=== PATIENT | female | born 1990 | race African-American/Black ===

== ENCOUNTER 2021-04-20 01:39 | Emergency (ER) | payer OTHER, SELFPAY ==
[2021-04-20] MEDS ORDERED: Ondansetron ODT 4 MG TAB ONE (02:55)
== END 2021-04-20 03:15 | disposition home or self-care (01) ==
LOC: CSHERS 01:39
DX: R11.2 Nausea with vomiting, unspecified (principal); T43.225A Adverse effect of selective serotonin reuptake inhibitors, initial encounter; I10 Essential (primary) hypertension; J45.909 Unspecified asthma, uncomplicated; F17.210 Nicotine dependence, cigarettes, uncomplicated; Z79.899 Other long term (current) drug therapy
CPT/HCPCS: 99283; Q0162